=== PATIENT | male | born 1945 | race Caucasian/White ===

== ENCOUNTER → 2020-08-02 | Outpatient (CLI) | payer MEDICARE, BC ==
--- NOTE | 2020-08-02 16:45 | REPVR ---
PROCEDURE INFORMATION: Exam: CT Chest Without Contrast; Diagnostic Exam date and time: 08/02/2020 4:06 PM Age: 74 years old Clinical indication: Abnormal findings; Abnormal radiologic exam of lung or chest; Additional info: Abn findings of lung field TECHNIQUE: Imaging protocol: Diagnostic computed tomography of the chest without contrast. 3D rendering (Not supervised by radiologist): MIP and/or 3D reconstructed images were created by the technologist. Radiation optimization: All CT scans at this facility use at least one of these dose optimization techniques: automated exposure control; mA and/or kV adjustment per patient size (includes targeted exams where dose is matched to clinical indication); or iterative reconstruction. COMPARISON: No relevant prior studies available. FINDINGS: Lungs: 6 mm noncalcified left lower lobe nodule. For patients at low risk (minimal or absent history of smoking and of other known risk factors), recommend CT Chest at 6-12 months, then consider CT Chest at 18-24 months. For patients at high risk (history of smoking or of other known risk factors), recommend CT Chest at 6-12 months, then CT Chest at 18-24 months. (Reference: [facility]). Pleural spaces: No pleural effusion. Heart: Coronary artery calcification. Mediastinal space: Large hiatal hernia. Aorta: Ectasia of the thoracic aorta. Lymph nodes: Calcified lymph nodes in association with chronic granulomatous disease. Upper abdomen: Colonic diverticula. Questionable wall thickening in the nondistended stomach. Bones/joints: Schmorl's nodes and degenerative change. IMPRESSION: 1. 6 mm noncalcified left lower lobe nodule. 2. Large hiatal hernia. 3. Additional findings as described above. Electronically signed by: Mark Bueno On 08/02/2020 16:45:16 PM
== END ==
LOC: M RAD 15:55
PROVIDERS: ATTEND Physician Assistant
DX: R91.1 Solitary pulmonary nodule (principal); K44.0 Diaphragmatic hernia with obstruction, without gangrene; K57.30 Diverticulosis of large intestine without perforation or abscess without bleeding

== ENCOUNTER → 2020-09-24 | Outpatient (CLI) | payer MEDICARE, BC ==
[~2020-09-24] MED LIST: METHACHOLINE KIT (J7674) INH ONE
--- NOTE | 2020-09-24 16:31 | PFTRPT ---
Site: [facility], [address] [place], [place], [address] ID: [id number] Name: JOE GALLO V Visit Date: 09/24/2020 Second ID: [id number] Referring Doctor: EVA Grier, Janessa Bach Reviewing Doctor: Mac Carey MD Garment Tag Stringer: Jaun WILLS RRT Age: 74 : 1945 Sex: Male Race: Height: 69.75 Inches Weight: 200.00 Lbs BSA: 2.08 Order IDs: [id number] Requested Test(s): <RESP-PFT.METH CHAL> Diagnosis: R05 puffs of albuterol for post bronchodilator and did not return to baseline therefore, a duoneb was given. Review Status: Not Reviewed Pre-Bronch Post-Bronch Pred Actual %Pred Actual %Chng SPIROMETRY FVC (L) 4.23 3.30 78 3.04 -8 FEV1 (L) 3.07 2.62 85 2.47 -5 FEV1/FVC (%) 73 79 108 81 2 FEF 25% (L/sec) 7.08 5.90 83 6.41 8 FEF 50% (L/sec) 4.06 2.79 68 3.33 19 FEF 75% (L/sec) 1.11 1.04 93 0.44 -57 FEF 25-75% (L/sec) 2.25 2.36 105 1.81 -23 FEF Max (L/sec) 7.88 6.17 78 6.54 5 FIVC (L) 3.29 3.05 -7 FIF 50% (L/sec) 4.36 4.49 103 6.54 45 FIF Max (L/sec) 4.55 6.82 49 Expiratory Time (sec) 6.87 7.31 6 Back Extrap Vol (L) 0.14 0.12 -11 Time To FEFmax (sec) 0.095 0.105 10
== END ==
LOC: M CARPUL 12:54
PROVIDERS: ATTEND Physician Assistant
DX: R05 Cough (principal)
CPT/HCPCS: 94070; 95070; J7674

== ENCOUNTER → 2021-02-13 | Outpatient (CLI) | payer MEDICARE, BC ==
--- NOTE | 2021-02-13 16:46 | REPVR ---
PROCEDURE INFORMATION: Exam: CT Chest Without Contrast; Diagnostic Exam date and time: 02/13/2021 1:20 PM Age: 75 years old Clinical indication: Abnormal findings; Lung mass or nodule; Single or solitary nodule; Additional info: Solitary pulm nodule, abnormal finding of lung TECHNIQUE: Imaging protocol: Diagnostic computed tomography of the chest without contrast. Radiation optimization: All CT scans at this facility use at least one of these dose optimization techniques: automated exposure control; mA and/or kV adjustment per patient size (includes targeted exams where dose is matched to clinical indication); or iterative reconstruction. COMPARISON: CT Chest without contrast 08/02/2020 4:09 PM FINDINGS: Lungs: There is a stable 6 mm left lower lobe nodule image . Nodules have not developed. The lungs are otherwise clear. Minimal apical pleural disease is stable bilaterally. Pleural spaces: Unremarkable. No pneumothorax. No pleural effusion. Heart: Unremarkable. No cardiomegaly. No pericardial effusion. Aorta: 35 mm sending aortic ectasia. Lymph nodes: Stable mediastinal and right hilar calcified lymph nodes. Kidneys and ureters: Questionable mild hydronephrosis versus prominent collecting system on the left. Bones/joints: Stable spine. Soft tissues: Stable paraesophageal hernia. Other findings: Mild vascular calcifications. IMPRESSION: 1. Stable 6 mm left lower lobe nodule. 2. Continue recommendations per the previous exam. Electronically signed by: El Russell On 02/13/2021 16:46:16 PM
== END ==
LOC: M PLAIMG 12:52
PROVIDERS: ATTEND Physician Assistant
DX: R91.1 Solitary pulmonary nodule (principal)

== ENCOUNTER → 2022-02-17 | Outpatient (CLI) | payer MEDICARE, BC | LOC: M PLAIMG 10:19 | PROVIDERS: ATTEND Physician Assistant | DX: R91.1 Solitary pulmonary nodule (principal) ==